=== PATIENT | female | born 2005 | race Two or more races ===

== ENCOUNTER 2024-10-14 22:16 | Inpatient (IN) | payer OTHER, MEDICAID ==
[~2024-10-14] VITALS: Ht 177.8 cm; Wt 64.5 kg
--- NOTE | 2024-10-14 23:10 | ED.PDOC ---
History of Present Illness HPI Comments 18-year-old female came to ER via EMS for hyperglycemia. Per EMS, patient has history of type 1 diabetes, claims to have good compliance to her insulin. Was just discharged today at the group home center. Patient is feeling weak and lethargic, appears confused and disoriented. Patient admits to have taken heroin earlier. Blood sugar on scene was 506. Upon arrival at the ER, blood sugar was 493 Chief Complaint: Hyperglycemia Time Seen by MD: 23:10 Primary Care Provider: n/a Reviewed Notes: Fisher Spear Notes Allergies: Coded Allergies: NO KNOWN ALLERGIES (Unverified , 10/14/24) Information Source: Patient, Emergency Med Personnel Mode of Arrival: EMS Severity: Moderate Timing: Hours Duration: Since onset Prehospital treatment: Accucheck Past Medical History PAST MEDICAL HISTORY: Pt Confused Surgical History: Pt Confused [employer] History: Pt Confused Family History Family History: Pt Confused Social History Smoker: Pt Confused Alcohol: Pt Confused Drugs: Heroin Lives In: Pt Confused Unable to Obtain due to: Altered Mental Status, Other (Intoxicated with drugs) Physical Exam General Appearance: No Apparent Distress, Normal HEENT: Normal ENT Inspection, Pharynx Normal, TMs Normal Neck: Full Range of Motion, Non-Tender, Normal, Normal Inspection Respiratory: Chest Non-Tender, Lungs Clear, No Accessory Muscle Use, No Respiratory Distress, Normal Breath Sounds Cardiovascular: No Edema, No JVD, No Murmur, No Gallop, Normal Peripheral Pulses, Regular Rate/Rhythm Breast Exam: Deferred Gastrointestinal: No Organomegaly, Non Tender, No Pulsatile Mass, Normal Bowel Sounds, Soft Genitalia: Deferred Pelvic: Deferred Rectal: Deferred Extremities: No calf tenderness, Normal capillary refill, Normal inspection, Normal range of motion, Non-tender, No pedal edema Musculoskeletal : Apperance: Normal Neurologic: Alert, clay transporter II-XII nml as Tested, No Motor Deficits, Normal Affect, Normal Mood, No Sensory Deficits Cerebellar Function: Normal Reflexes: Normal Skin: Dry, Normal Color, Warm Lymphatic: No Adenopathy Was a procedure done? Was a procedure done?: No Differential Dx Considerations may include: Anemia, electrolyte imbalance, substance abuse, hyperglycemia, diabetic ketoacidosis X-Ray, Labs, Meds, VS Vital Signs Date Time Temp Pulse Resp B/P (MAP) Pulse Ox O2 Delivery O2 Flow Rate FiO2 10/15/24 00:59 68 12 98 Room Air* 0 21 21 10/14/24 23:00 98.4 68 11 121/78 (92) 98 98.4 10/14/24 22:21 97.5 81 20 124/82 (96) 98 97.5 10/14/24 22:19 69 Lab Test 10/14/24 23:59 10/14/24 23:50 10/14/24 22:23 Range/Units Urine Color Pending Urine Clarity Pending Urine pH Pending Urine Specific [place] Pending Urine Protein Pending Urine Ketones Pending Urine Blood Pending Urine Nitrite Pending Urine Bilirubin Pending Urine Urobilinogen Pending Urine Leukocyte Esterase Pending Urine RBC Pending Urine Microscopic WBC Pending Urine Squamous Epithelial Cells Pending Urine Bacteria Pending Urine Glucose Pending White Blood Count 7.2 4.4-10.8 10^3/uL Red Blood Count 4.17 4.0-5.20 10^6/uL Hemoglobin 12.9 12.2-16.2 g/dL Hematocrit 39.2 36.0-46.0 % Mean Corpuscular Volume 93.9 80.0-100.0 fL Mean Corpuscular Hemoglobin 31.0 28.0-32.0 pg Mean Corpuscular Hemoglobin Concent 33.0 32.0-36.0 g/dL Red Cell Distribution Width 13.9 11.8-14.3 % Platelet Count 352 140-450 10^3/uL Mean Platelet Volume 7.6 6.9-10.8 fL Neutrophils (%) (Auto) 55.5 37.0-80.0 % Lymphocytes (%) (Auto) 33.3 10.0-50.0 % Monocytes (%) (Auto) 9.0 0.0-12.0 % Eosinophils (%) (Auto) 1.2 0.0-7.0 % Basophils (%) (Auto) 1.0 0.0-2.0 % Neutrophils # (Auto) 4.0 1.6-8.6 10 ^3/uL Lymphocytes # (Auto) 2.4 0.4-5.4 10 ^3/uL Monocytes # (Auto) 0.7 0-1.3 10 ^3/uL Eosinophils # (Auto) 0.1 0-0.8 10 ^3/uL Basophils # (Auto) 0.1 0-0.2 10 ^3/uL Nucleated Red Blood Cells 0.1 % Sodium Level 128 L 136-145 mmol/L Potassium Level 5.1 3.5-5.1 mmol/L Chloride Level 98 98-107 mmol/L Carbon Dioxide Level 23 20-31 mmol/L Anion Gap 7 5-15 Blood Urea Nitrogen 17 9-23 mg/dL Creatinine 0.73 0.550-1.02 mg/dL Glomerular Filtration Rate Calc 121 >90 mL/min BUN/Creatinine Ratio 23.3 H 10.0-20.0 Serum Glucose 528 *H 74-106 mg/dL Calcium Level 9.3 8.7-10.4 mg/dL POC Glucose 493 *H 70-106 mg/dl Time of 1ST Reevaluation: 22:59 Reevaluation 1ST: Unchanged Patient Education/Counseling: Diagnosis, Treatment Family Education/Counseling: No Family Present Departure 1 Departure Time of Disposition: 02:02 (Patient with uncontrolled diabetes. We will admit patient for further workup and expert consultation) Impression: Primary Impression: Uncontrolled diabetes mellitus Qualified Codes: E11.65 - Type 2 diabetes mellitus with hyperglycemia Disposition: 09 ADMITTED INPATIENT Admit to: Med Surg Condition: Serious Critical Care Note Critical Care Time?: Yes (35 min-critical care time only) Critical care comment: Hyperglycemia Authorized and Performed by: Billy Andre MD Total critical care time: Approximately 39 minutes Due to a high probability of clinically significant, life threatening deterioration, the patient required my highest level of preparedness to intervene emergently and I personally spent this critical care time directly and personally managing the patient. This critical care time included obtaining a history; examining the patient; pulse oximetry; ordering and review of studies; arranging urgent treatment with development of a management plan; evaluation of patient's response to treatment; frequent reassessment; and, discussions with other providers. This critical care time was performed to assess and manage the high probability of imminent, life-threatening deterioration that could result in multi-organ failure. It was exclusive of separately billable procedures and treating other patients and teaching time. Please see my other sections and the rest of the note for further information on patient assessment and treatment. Stability Stability form required: No Heart Score Heart Score: Heart Score Response (Comments) Value History N/A 0 EKG N/A 0 Age N/A 0 Risk Factors N/A 0 Troponin N/A 0 Total 0 I personally scribed for BILLY ANDRE MD ([email or web address]) on 10/14/24 at 23:10. Electronically submitted by Oliver Johnson ([facility]). BILLY ANDRE MD October 14, 2024 23:10
[2024-10-15 00:39] LABS: Basophils # (auto) 0.1 10 ^3/uL (0-0.2); Eosinophils # (auto) 0.1 10 ^3/uL (0-0.8); Eosinophils % (auto) 1.2 % (0.0-7.0); Hematocrit 39.2 % (36.0-46.0); Hemoglobin 12.9 g/dL (12.2-16.2); Lymphocytes # (auto) 2.4 10 ^3/uL (0.4-5.4); Lymphocytes % (auto) 33.3 % (10.0-50.0); Mean Corpuscular Volume 93.9 fL (80.0-100.0); Monocytes # (auto) 0.7 10 ^3/uL (0-1.3); Neutrophils % (auto) 55.5 % (37.0-80.0); Nucleated Red Blood Cells % 0.1 %; Platelet Count (auto) 352 10^3/uL (140-450); Red Blood Cells 4.17 10^6/uL (4.0-5.20); Red Cell Distribution Width 13.9 % (11.8-14.3); White Blood Cell 7.2 10^3/uL (4.4-10.8)
[2024-10-15 00:49] LABS: Chloride 98 mmol/L (98-107); Potassium 5.1 mmol/L (3.5-5.1)
[2024-10-15 00:50] LABS: Anion Gap 7 (5-15); Calcium 9.3 mg/dL (8.7-10.4); Carbon Dioxide 23 mmol/L (20-31)
[2024-10-15 00:55] LABS: BUN/Creatinine Ratio 23.3 (10.0-20.0); Blood Urea Nitrogen 17 mg/dL (9-23)
[2024-10-15 00:59] VITALS: PULSE 68; RESP 12; O2SAT 98
[2024-10-15 01:00] LABS: Sodium 128 mmol/L (136-145)
[2024-10-15 01:02] LABS: Glucose 528 mg/dL (74-106)
[2024-10-15] MEDS: SODIUM CHLORIDE 0.9% 1,000 ML IV ONE (02:20)
[2024-10-15 02:36] LABS: Urine Bacteria FEW /hpf (None Seen); Urine Blood Negative /uL (Negative); Urine Clarity Clear (Clear); Urine Color Colorless (Yellow); Urine Protein, UAD Negative (Negative); Urine Specific Gravity 1.022 (1.001-1.035); Urine Squamous Epithelial Cell FEW /hpf (<5); Urine Urobilinogen Normal (Negative); Urine WBC 1 /HPF (0-5)
[2024-10-15] MEDS: InsuLIN REG 1unit/0.01ml Soln (100units/ml) IV ONE (02:54)
--- NOTE | 2024-10-15 06:27 | ECG ---
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
[2024-10-15] MEDS ORDERED: ONDANSETRON HCL 4 MG/2 ML VIAL IV PRN (07:00)
[2024-10-15] MEDS ORDERED: ACETAMINOPHEN 325 MG TAB PO PRN (07:00)
[2024-10-15] MEDS ORDERED: DEXTROSE (50%) 50ML SYRG IV PRN (07:00)
--- NOTE | 2024-10-15 07:03 | DVHHP2 ---
History of Present Illness Reason for Visit: Elevated Blood sugar History of Present Illness Georgina Wright is a 18-year-old female with past medical history of diabetes who presents to the ED with high blood sugar, weakness, lethargy, confusion, and disorientation. [facility]. Upon examination patient is refusing to answer questions. Patient is awake and alert responds to tactile stimulation but just refusing to answer questions. No shortness of breath noted or acute distress noted. Patient denies chest pain, shortness of breath, fever, chills, lightheadedness, weakness, dizziness, abdominal pain, nausea, vomiting, diarrhea, or recent ingestion of spoiled food. Endocrine: Diabetes Drugs: Heroin Review of Systems Constitutional: Yes: Weakness, Other (Lethargy) Neurological: Confusion, Other (Disorientation) Allergies: Coded Allergies: NO KNOWN ALLERGIES (Unverified , 10/14/24) Exam Vital Signs Vital Signs Date Time Temp Pulse Resp B/P (MAP) Pulse Ox O2 Delivery O2 Flow Rate FiO2 10/15/24 06:09 101 16 136/83 (100) 97 10/15/24 00:59 Room Air* 0 21 21 10/14/24 23:00 98.4 98.4 General Appearance: Alert, No acute distress HEENT: Atraumatic, Mucous membr. moist/pink Neuro: Normal speech, Strength at 5/5 X4 ext, Normal tone, Sensation intact Psych/Mental Status: Mental status NL Labs/Xrays Labs Test 10/15/24 04:00 10/14/24 23:59 10/14/24 23:50 Range/Units POC Glucose 351 H 70-106 mg/dl Urine Color Colorless Yellow Urine Clarity Clear Clear Urine pH 6.0 5.0-9.0 Urine Specific [place] 1.022 1.001-1.035 Urine Protein Negative Negative Urine Ketones Trace Negative Urine Blood Negative Negative /uL Urine Nitrite Negative Negative Urine Bilirubin Negative Negative Urine Urobilinogen Normal Negative mg/dL Urine Leukocyte Esterase Negative Negative /uL Urine RBC 3 0 - 4 /hpf Urine Microscopic WBC 1 0-5 /HPF Urine Squamous Epithelial Cells Few <5 /hpf Urine Bacteria Few H None Seen /hpf Urine Glucose 4+ H Normal mg/dL White Blood Count 7.2 4.4-10.8 10^3/uL Red Blood Count 4.17 4.0-5.20 10^6/uL Hemoglobin 12.9 12.2-16.2 g/dL Hematocrit 39.2 36.0-46.0 % Mean Corpuscular Volume 93.9 80.0-100.0 fL Mean Corpuscular Hemoglobin 31.0 28.0-32.0 pg Mean Corpuscular Hemoglobin Concent 33.0 32.0-36.0 g/dL Red Cell Distribution Width 13.9 11.8-14.3 % Platelet Count 352 140-450 10^3/uL Mean Platelet Volume 7.6 6.9-10.8 fL Neutrophils (%) (Auto) 55.5 37.0-80.0 % Lymphocytes (%) (Auto) 33.3 10.0-50.0 % Monocytes (%) (Auto) 9.0 0.0-12.0 % Eosinophils (%) (Auto) 1.2 0.0-7.0 % Basophils (%) (Auto) 1.0 0.0-2.0 % Neutrophils # (Auto) 4.0 1.6-8.6 10 ^3/uL Lymphocytes # (Auto) 2.4 0.4-5.4 10 ^3/uL Monocytes # (Auto) 0.7 0-1.3 10 ^3/uL Eosinophils # (Auto) 0.1 0-0.8 10 ^3/uL Basophils # (Auto) 0.1 0-0.2 10 ^3/uL Nucleated Red Blood Cells 0.1 % Sodium Level 128 L 136-145 mmol/L Potassium Level 5.1 3.5-5.1 mmol/L Chloride Level 98 98-107 mmol/L Carbon Dioxide Level 23 20-31 mmol/L Anion Gap 7 5-15 Blood Urea Nitrogen 17 9-23 mg/dL Creatinine 0.73 0.550-1.02 mg/dL Glomerular Filtration Rate Calc 121 >90 mL/min BUN/Creatinine Ratio 23.3 H 10.0-20.0 Serum Glucose 528 *H 74-106 mg/dL Calcium Level 9.3 8.7-10.4 mg/dL Assessment/Plan Assessment/Plan Assessment Diabetes uncontrolled Generalized weakness Acute encephalopathy Hyponatremia Hyperkalemia Plan Admit to telemetry Diabetic referral Hemoglobin A1c ISS and Accu-Cheks Insulin given ED NS1 L given ED UA EKG IV fluids Diet Antiemetics Home medications recon DVT prophylaxis-Lovenox PD prophylaxis-not indicated no history of GERD or GI bleed Discussed plan of care with patient and nurse Plan discussed with: Patient My Orders Orders - QUETA VALDERRAMA Procedure Category Date Status Time Sodium Chloride 0.9% PHA 10/15/24 Logged 07:00 Glucose Blood PHA 10/15/24 Logged (Accu-Chek Comfort 07:00 Insulin R (Human) PHA 10/15/24 Logged (Insulin R) 07:00 Dextrose 50% Syringe PHA 10/15/24 Logged 07:00 Hemoglobin A1c LAB 10/15/24 Logged 06:55 Admit ADMIT 10/15/24 Transmitted 06:55 Allergies DONAVON 10/15/24 In Process 06:55 Code Status CODE 10/15/24 Transmitted 06:55 Ondansetron Hcl PHA 10/15/24 Logged (Zofran) 07:00 Enoxaparin Sodium PHA 10/15/24 Logged (Lovenox) 10:00 Complete Blood Count LAB 10/16/24 Verified 04:00 Comprehensive LAB 10/16/24 Verified Metabolic Panel 04:00 Cardiac DIET 10/15/24 Transmitted Diet-2gna,Lofat,Lochol Breakfast Acetaminophen Tablet PHA 10/15/24 Logged (Tylenol Tablet) 07:00 Potassium LAB 10/15/24 Logged 06:57 Date of Service: October 15, 2024 Billing Provider: QUETA VALDERRAMA Common Visit Codes: [id number] INP/OBS CARE (HIGH) QUETA VALDERRAMA October 15, 2024 07:03
[2024-10-15] MEDS: ACCU-CHEK COMFORT CURVE STRIP VI SCH (07:04)
[2024-10-15] MEDS: InsuLIN REG 1unit/0.01ml Soln (100units/ml) SC SCH (07:06)
[2024-10-15 07:30] VITALS: BP 115/76; PULSE 86; RESP 20; TEMP 98.1; O2SAT 97
[2024-10-15] MEDS: SODIUM CHLORIDE 0.9% 1,000 ML IV SCH (07:37)
[2024-10-15] MEDS ORDERED: ENOXAPARIN SOD 40 MG/0.4 ML SYRINGE SC SCH (10:00)
== END 2024-10-15 09:30 | disposition left against medical advice (07) | DRG 420 ==
LOC: ER 22:16 → EDBD 22:16 → OVERFLOW 10-15 06:59
DX: E10.65 Type 1 diabetes mellitus with hyperglycemia (principal); G93.49 Other encephalopathy; F17.200 Nicotine dependence, unspecified, uncomplicated; E87.5 Hyperkalemia; Z53.29 Procedure and treatment not carried out because of patient's decision for other reasons; Z79.4 Long term (current) use of insulin
CPT/HCPCS: 36415; 80048; 81001; 82962; 83036; 84132; 85025; 96361; 96374; 99291; G0378; J1815